=== PATIENT | female | born 1980 | race Caucasian/White ===

== ENCOUNTER 2021-08-22 12:54 | Emergency (ER) | payer BC, SELFPAY ==
[2021-08-22 12:55] VITALS: BP 160/75; PULSE 92; RESP 16; TEMP 36.2; O2SAT 100; BMI 23.6
--- NOTE | 2021-08-22 13:36 | EDS_ITS ---
HPI History of Present Illness Chief Complaint: Neuro S/Sx Informant: patient Onset/Context/Timing Onset: Today Timing: Intermittent Current Severity: Gone Maximum Severity: Mild Narrative Narrative: 41-year-old female history of ADHD, bipolar and PTSD. On Abilify recently put on guafacine. States been on that medication for approximately 2 days. Has had intermittent dry mouth and trouble speaking. Symptoms currently resolved. Denies any headache. Prior similar symptoms: No Recent Illness/Hospitalization: No PFSH PFSH Home Medications oxycodone-acetaminophen 1 - 2 tab PO Q4H PRN PRN #12 tab 12/12/15 [Rx Last Taken Unknown] penicillin V potassium 500 mg PO 4X/DAY #40 tab 12/12/15 [Rx Last Taken Unknown] Allergy/AdvReac Type Severity Reaction Status Date / Time No Known Allergies Allergy Verified 08/22/21 12:58 Social History Smoking Status: Current every day smoker ROS ROS ED ROS Narrative Denies recent illness. Review of Systems ROS Unobtainable: Denies due to encephalopathy Constitutional Constitutional ED: Denies fever(s) Eyes Eyes: Denies change in vision ENT ENT ED: Denies ear pain Cardiovascular Cardiovascular: Denies chest pain Respiratory/Chest Respiratory/Chest: Denies dyspnea Gastrointestinal Gastrointestinal: Denies abdominal pain Genitourinary Genitourinary ED: Denies dysuria Musculoskeletal Musculoskeletal: Denies myalgias Integumentary Denies rash Neurologic Neurologic: Denies headache(s) Psychiatric Psychiatric: Denies depression Endocrine Endocrinology: Denies polyuria Allergic/Immunologic Allergic/Immunologic ED: Denies urticaria EXAM Physical Exam Narrative Exam Narrative: 41-year-old female no acute distress. Vital signs stable afebrile. Exam normal. HEENT exam normal. Normal speech. No facial droop. Tongue midline. Extraocular motions intact. Lungs clear. Heart regular rhythm no murmur. Abdomen soft nontender. Moving all 4 extremities. Equal symmetrical 5-5 regional forester strength. Dorsi plantarflexion intact. Neurologic exam normal. NIH is 0. Normal speech. No facial droop. Fingertip to nose and [id number] within normal limits. No drift. Const Vital Signs: 08/22/21 12:55 Temperature 97.2 F L Temperature Source Temporal Pulse Rate 92 Respiratory Rate 16 Blood Pressure 160/75 H Blood Pressure Mean 103 Pulse Ox 100 Oxygen Delivery Method Room Air Positive well nourished and well developed General Appearance ED: well developed and NAD; Negative for cyanotic, diap horetic or pallor HEENT Reports moist mucous membranes Negative for trauma or tenderness Eyes PERRL and EOMs intact bilaterally Neck no lymphadenopathy, supple and no JVD General: Negative for tenderness Chest Wall inspection of chest normal and palpation of chest normal Resp normal respiratory effort and clear to auscultation bilaterally Effort and Inspection: Negative for pain with movement Auscultation: Negative for rales, rhonchi or wheezes Cardio regular rate, regular rhythm, S1 normal heart sound, S2 normal heart sound and no murmurs GI normal to inspection, nondistended, normoactive bowel sounds, non-tender, non-distended and no masses Auscultation: normoactive bowel sounds Palpation: soft; Negative for tender or guarding Back/Spine no CVA tenderness Extremity normal to inspection General Extremety ED: Yes tenderness; Negative for edema General Extremity: Negative for edema Neuro oriented x3 and CN's II-XII intact bilaterally Sensorium / Orientation: alert; Negative for orientation impaired, lethargic or stuporous Motor Exam: strength 5/5 throughout Psych mental status grossly normal Attitude: No agitated Mood & Affect: Negative for depressed or tearful Skin no rashes or lesions noted and no wounds General Skin Exam: Negative for jaundice or pallor MDM MDM MDM Narrative Medical decision making narrative: 41-year-old female who reportedly had facial droop and difficulty speaking. Recently started on new medication. Current exam is completely normal with a completely normal neurologic exam. She ambulates on a difficulty. She needs no lab work. I do not think she needs any imaging. She will follow up with her psychiatrist. Discharge Plan Triage Chief Complaint: Neuro S/Sx ED Provider: Rickie Gilmore Dx/Rx/DC Orders Clinical Impression: Medication side effects Prescriptions: No Action penicillin V potassium 500 MG tablet 500 mg PO 4X/DAY Qty: 40 RF: 0 oxycodone-acetaminophen 1 TABLET tablet 1 - 2 tab PO Q4H PRN PRN (Reason: Pain) Qty: 12 RF: 0 Primary Care Provider: Dary Lora Referrals: Dary Lora MD [Primary Care Provider] - As Needed Activity Restrictions/Additional Instructions: Continue your current medications. Follow-up with your psychiatrist to see what they want to do with your medications if they want to continue them or change them. Disposition Disposition: Home, Self Care
[2021-08-22 13:44] VITALS: BMI 23.6
== END 2021-08-22 13:54 | disposition home or self-care (01) ==
PROVIDERS: Emergency Provider Emergency Medicine; PCP Internal Medicine; Visit Provider Emergency Medicine
DX: R68.2 Dry mouth, unspecified (principal); F31.9 Bipolar disorder, unspecified; T46.5X5A Adverse effect of other antihypertensive drugs, initial encounter; F90.9 Attention-deficit hyperactivity disorder, unspecified type; F43.10 Post-traumatic stress disorder, unspecified; F17.200 Nicotine dependence, unspecified, uncomplicated
CPT/HCPCS: 99282